=== PATIENT | male | born 1955 | race Hispanic/Latino ===

== ENCOUNTER → 2019-03-20 | Outpatient (CLI) | payer MEDICARE | END | disposition home or self-care (01) | LOC: SHCH 15:41 | PROVIDERS: ATTEND Internal Medicine Cardiovascular Disease | DX: I25.10 Atherosclerotic heart disease of native coronary artery without angina pectoris (principal); I51.7 Cardiomegaly | CPT/HCPCS: 93306 ==

== ENCOUNTER → 2019-03-30 | Outpatient (CLI) | payer MEDICARE ==
[~2019-03-30] VITALS: Ht 180.3 cm; Wt 94.8 kg
[~2019-03-30] MED LIST: REGADENOSON 0.4 MG/5 ML PF SYG IVP SCH
== END | disposition home or self-care (01) ==
LOC: SHCH 08:17
PROVIDERS: ATTEND Internal Medicine Cardiovascular Disease
DX: I25.10 Atherosclerotic heart disease of native coronary artery without angina pectoris (principal)
CPT/HCPCS: 78452; 93017; 96374; A9500 ×2; J2785

== ENCOUNTER → 2020-08-03 | Outpatient (CLI) | payer MEDICARE | END | disposition home or self-care (01) | LOC: SHCH 12:22 | PROVIDERS: ATTEND Internal Medicine Cardiovascular Disease | DX: I87.2 Venous insufficiency (chronic) (peripheral) (principal); I73.9 Peripheral vascular disease, unspecified | CPT/HCPCS: 93925; 93970 ==

== ENCOUNTER → 2022-04-17 | Outpatient (CLI) | payer MEDICARE | END | disposition home or self-care (01) | LOC: SHCH 15:05 | PROVIDERS: ATTEND Internal Medicine Cardiovascular Disease | DX: I77.1 Stricture of artery (principal); I65.21 Occlusion and stenosis of right carotid artery | CPT/HCPCS: 93880 ==

== ENCOUNTER → 2023-03-18 | Outpatient (CLI) | payer MEDICARE ==
[~2023-03-18] MED LIST changes: +CEFAZOLIN SODIUM 1 GM VIAL ONE; +PAPAVERINE HCL 30 MG/ML 2ML VIAL ONE; -REGADENOSON 0.4 MG/5 ML PF SYG IVP SCH
== END | disposition home or self-care (01) ==
LOC: SHCH 08:12
PROVIDERS: ATTEND Internal Medicine Cardiovascular Disease
DX: I11.9 Hypertensive heart disease without heart failure (principal); R01.1 Cardiac murmur, unspecified; E11.9 Type 2 diabetes mellitus without complications; E78.5 Hyperlipidemia, unspecified
CPT/HCPCS: 93306; J0690; J1644; J2440

== ENCOUNTER → 2023-03-28 | Outpatient (CLI) | payer MEDICARE | END | disposition home or self-care (01) | LOC: SHCH 14:59 | PROVIDERS: ATTEND Internal Medicine Cardiovascular Disease | DX: I65.23 Occlusion and stenosis of bilateral carotid arteries (principal) | CPT/HCPCS: 93880 ==

== ENCOUNTER → 2023-04-05 | Outpatient (CLI) | payer MEDICARE ==
[~2023-04-05] MED LIST changes: -CEFAZOLIN SODIUM 1 GM VIAL ONE; -PAPAVERINE HCL 30 MG/ML 2ML VIAL ONE; +REGADENOSON 0.4 MG/5 ML PF SYG IVP ONE
== END | disposition home or self-care (01) ==
LOC: SHCH 08:17
PROVIDERS: ATTEND Internal Medicine Cardiovascular Disease
DX: R94.39 Abnormal result of other cardiovascular function study (principal); I49.1 Atrial premature depolarization; I20.9 Angina pectoris, unspecified; R07.9 Chest pain, unspecified
CPT/HCPCS: 78452; 96374; 93017; J2785; A9500 ×2

== ENCOUNTER → 2023-05-31 | Outpatient (CLI) | payer MEDICARE ==
[~2023-05-31] MED LIST changes: +IOHEXOL 350 MG/ML 100ML INFUS..BTL IV ONE; -REGADENOSON 0.4 MG/5 ML PF SYG IVP ONE
== END | disposition home or self-care (01) ==
LOC: RAH 09:16
PROVIDERS: ATTEND Internal Medicine Cardiovascular Disease
DX: I65.23 Occlusion and stenosis of bilateral carotid arteries (principal)
CPT/HCPCS: 70498; Q9967

== ENCOUNTER → 2023-09-17 | Outpatient (CLI) | payer MEDICARE ==
[~2023-09-17] VITALS: Ht 172.7 cm; Wt 94.8 kg
[~2023-09-17] MED LIST changes: +AEC81 PO; +ATOR40TA71 PO; +CLOP75TA32 PO; +DILT120C12 PO; +FEXO-235 PO; -IOHEXOL 350 MG/ML 100ML INFUS..BTL IV ONE; +LOSA100T59 PO; +METO-409 PO; +NITR0.4T50 SL; +VENL-63 PO; +[UNRECOGNIZED DRUG - CODE] PO
[2023-09-17 11:20] LABS: BASOPHILS # (AUTO) 0.11 K/uL (0.00-0.20); BASOPHILS % (AUTO) 1.1 % (0.0-5.0); EOSINOPHILS # (AUTO) 0.11 K/uL (0.00-0.70); EOSINOPHILS % (AUTO) 1.1 % (0.0-8.0); HEMATOCRIT 37.7 % (42-54); IMMATURE GRANULOCYTE ABSOLUTE 0.06 K/uL (0-1); LYMPHOCYTES # (AUTO) 0.8 K/uL (1.0-4.8); LYMPHOCYTES % (AUTO) 7.9 % (21.0-51.0); MEAN CORPUSCULAR HEMOGLOBIN 31.7 pg (27.0-33.0); MEAN CORPUSCULAR HGB CONC 33.2 g/dL (32.0-36.0); MEAN CORPUSCULAR VOLUME 95.7 fL (79-99); MONOCYTES # (AUTO) 1.2 K/uL (0.1-1.0); MONOCYTES % (AUTO) 11.9 % (3.0-13.0); NEUTROPHILS # (AUTO) 7.9 K/uL (1.8-7.7); NEUTROPHILS % (AUTO) 77.4 % (40.0-77.0); PLATELET COUNT (AUTO) 299 K/uL (130-400); RED BLOOD CELL COUNT(AUTO) 3.94 MIL/uL (4.50-6.20); WHITE BLOOD COUNT (AUTO) 10.2 K/uL (4.8-10.8)
[2023-09-17 11:27] LABS: CREATININE 1.3 mg/dL (0.5-1.5); POTASSIUM 4.9 mmol/L (3.5-5.1)
[2023-09-17 11:51] VITALS: BP 165/72; PULSE 78; RESP 21
[2023-09-17 11:54] LABS: APPEARANCE,URINE CLEAR (CLEAR); BILIRUBIN,URINE NEGATIVE (NEGATIVE); COLOR,URINE YELLOW (YELLOW); GLUCOSE, URINE (UA) NEGATIVE (NEGATIVE); KETONES,URINE NEGATIVE (NEGATIVE); LEUKOCYTE ESTERASE ,URINE NEGATIVE Leu/uL (NEGATIVE); NITRATE,URINE NEGATIVE (NEGATIVE); OCCULT BLOOD,URINE NEGATIVE (NEGATIVE); PROTEIN,URINE NEGATIVE (NEGATIVE); UROBILINOGEN,URINE 0.2 mg/dL (0.2-1.0)
[2023-09-17 12:06] LABS: B-TYPE NATRIURETIC PEPTIDE 245 pg/mL (0-100)
[2023-09-17 12:10] LABS: ADD UA MICROSCOPIC NO
[2023-09-17 12:16] LABS: INR 0.95 (0.85-1.15); PROTHROMBIN TIME 11.1 SEC (9.6-11.6)
[2023-09-17 12:18] LABS: PARTIAL THROMBOPLASTIN TIME 32.8 SEC (26.3-35.5)
== END | disposition home or self-care (01) ==
LOC: DAH 10:00 → EDSTATUS 10:00
PROVIDERS: ATTEND Internal Medicine Cardiovascular Disease
DX: Z01.818 Encounter for other preprocedural examination (principal); I25.10 Atherosclerotic heart disease of native coronary artery without angina pectoris; I51.7 Cardiomegaly; M47.815 Spondylosis without myelopathy or radiculopathy, thoracolumbar region; Z79.01 Long term (current) use of anticoagulants
CPT/HCPCS: 36415; 71045; 80048; 81003; 83880; 85025; 85610; 85730; 93005

== ENCOUNTER 2023-11-21 07:40 | Day surgery (SDC) | payer MEDICARE ==
[2023-11-19 10:09] LABS: CREATININE 1.1 mg/dL (0.5-1.5); POTASSIUM 4.9 mmol/L (3.5-5.1)
[2023-11-19 10:10] LABS: BASOPHILS # (AUTO) 0.06 K/uL (0.00-0.20); BASOPHILS % (AUTO) 0.7 % (0.0-5.0); EOSINOPHILS # (AUTO) 0.21 K/uL (0.00-0.70); EOSINOPHILS % (AUTO) 2.5 % (0.0-8.0); HEMATOCRIT 39.9 % (42-54); IMMATURE GRANULOCYTE ABSOLUTE 0.08 K/uL (0-1); LYMPHOCYTES # (AUTO) 1.3 K/uL (1.0-4.8); LYMPHOCYTES % (AUTO) 15.2 % (21.0-51.0); MEAN CORPUSCULAR HEMOGLOBIN 31.1 pg (27.0-33.0); MEAN CORPUSCULAR HGB CONC 33.1 g/dL (32.0-36.0); MEAN CORPUSCULAR VOLUME 93.9 fL (79-99); MONOCYTES % (AUTO) 12.1 % (3.0-13.0); NEUTROPHILS # (AUTO) 5.7 K/uL (1.8-7.7); NEUTROPHILS % (AUTO) 68.5 % (40.0-77.0); PLATELET COUNT (AUTO) 338 K/uL (130-400); RED BLOOD CELL COUNT(AUTO) 4.25 MIL/uL (4.50-6.20); RED CELL DISTRIBUTION WIDTH 13.6 % (11.0-15.5); WHITE BLOOD COUNT (AUTO) 8.4 K/uL (4.8-10.8)
[2023-11-19 10:17] LABS: INR <= 0.93 (0.85-1.15); PROTHROMBIN TIME 10.5 SEC (9.6-11.6)
[2023-11-19 10:18] LABS: PARTIAL THROMBOPLASTIN TIME 31.2 SEC (26.3-35.5)
[2023-11-19 10:25] VITALS: BP 150/74; PULSE 69; RESP 18
[2023-11-21] VITALS (13 sets, daily range): BP systolic 111–152; BP diastolic 53–65; PULSE 59–68; RESP 14–16
[~2023-11-21] VITALS: Ht 177.8 cm; Wt 93.3 kg
[~2023-11-21 07:40] MED LIST changes: +CALC-866 PO; +CYAN-118 PO; -[UNRECOGNIZED DRUG - CODE] PO
[2023-11-21] MEDS ORDERED: BIVALIRUDIN 250 MG/VIAL IV ONE (09:56)
[2023-11-21] MEDS ORDERED: LIDOCAINE HCL 400MG/20ML VIAL ONE (09:56)
[2023-11-21] MEDS ORDERED: FENTANYL CITRATE PF 50 MCG/1 ML 2ML VIAL ONE (09:56)
[2023-11-21] MEDS ORDERED: MIDAZOLAM HCL 1 MG/ML 2ML VIAL ONE ×2 (09:56→10:44)
[2023-11-21] MEDS ORDERED: HEPARIN 10,000 UNIT/10ML (1,000 UNIT/ML) VIAL ONE (09:57)
[2023-11-21] MEDS ORDERED: IOHEXOL-350 50ML VIAL IV ONE (09:57)
[2023-11-21] MEDS ORDERED: NITROGLYCERIN 50MG VIAL ONE (09:57)
[2023-11-21] MEDS ORDERED: IOHEXOL 350 MG/ML 100ML INFUS..BTL IV ONE (09:57)
[2023-11-21] MEDS: 0.9%NACL 1000ML 1,000 ML IV ONE (09:57)
[2023-11-21] MEDS ORDERED: DEXTROSE 50%-WATER 50 ML DISP.SYRIN IV PRN (11:30)
[2023-11-21] MEDS ORDERED: GLUCAGON 1MG KIT 1 MG ML IM PRN (11:30)
[2023-11-21] MEDS ORDERED: 0.9%NACL 1000ML 1,000 ML IV SCH (11:30)
== END 2023-11-21 17:40 | disposition home or self-care (01) ==
LOC: DAH 07:40
PROVIDERS: ATTEND Internal Medicine Cardiovascular Disease
DX: I25.118 Atherosclerotic heart disease of native coronary artery with other forms of angina pectoris (principal); I65.22 Occlusion and stenosis of left carotid artery; T82.855A Stenosis of coronary artery stent, initial encounter; I25.82 Chronic total occlusion of coronary artery; I49.3 Ventricular premature depolarization; I11.0 Hypertensive heart disease with heart failure; I50.32 Chronic diastolic (congestive) heart failure; E11.9 Type 2 diabetes mellitus without complications; E78.5 Hyperlipidemia, unspecified; I87.2 Venous insufficiency (chronic) (peripheral); F32.A Depression, unspecified; N52.9 Male erectile dysfunction, unspecified; E66.3 Overweight; Z79.899 Other long term (current) drug therapy; Z79.01 Long term (current) use of anticoagulants; Z95.1 Presence of aortocoronary bypass graft; Z68.27 Body mass index [BMI] 27.0-27.9, adult; Z87.891 Personal history of nicotine dependence; Z79.82 Long term (current) use of aspirin; Y83.8 Other surgical procedures as the cause of abnormal reaction of the patient, or of later complication, without mention of misadventure at the time of the procedure; Y92.89 Other specified places as the place of occurrence of the external cause
CPT/HCPCS: 80048; 85025; 85610; 85730; 36415; 71045; 93005; 93459; 36222; 36225; 82948; C1769; C1894 ×2; C1760 ×3; J3010; J3490 ×2; J7030; J2250 ×2; J1644; Q9967; A4215; A4222; A4221; A4663; A4216; A4606; Q9965 ×2; A4223 ×3; 36223; 99156; 99157; J0583

== ENCOUNTER → 2024-03-02 | Outpatient (CLI) | payer MEDICARE ==
[~2024-03-02] MED LIST changes: +CYAN-106 PO; -CYAN-118 PO
== END | disposition home or self-care (01) ==
LOC: SHCH 11:29
PROVIDERS: ATTEND Internal Medicine Cardiovascular Disease
DX: I65.22 Occlusion and stenosis of left carotid artery (principal)
CPT/HCPCS: 93880

== ENCOUNTER → 2024-11-28 | Outpatient (CLI) | payer MEDICARE ==
--- NOTE | 2024-12-02 08:38 | HMCSR ---
APPROVED REPORT Laterality: Bilateral Indications i65.23 Surgery/Intervention Carotid Stent: left Doppler Spectral Velocity Analysis PSV / EDVPSV / EDV ECA (R) 178 / cm/sECA (L) 209 / cm/s dICA (R) 118 / 23 cm/sdICA (L) 105 / 26 cm/s Fransico (R) 97 / 21 cm/smICA (L) 110 / 22 cm/s pICA (R) 116 / 14 cm/spICA (L) 115 / 16 cm/s dCCA (R) 99 / 19 cm/sdCCA (L) 81 / 16 cm/s mCCA (R) 73 / 13 cm/smCCA (L) 107 / 22 cm/s pCCA (R) 58 / 13 cm/spCCA (L) 143 / 36 cm/s Vert (R) 62 / cm/sVert (L) 37 / cm/s Subl. (R) 273 / cm/sSubl. (L) 404 / cm/s ICA/CCA 1.19ICA/CCA 0.80 Technologist Impression Mild plaque noted in the bilateral carotids. Right ICA appears patent, without hemodynamic significance. Evidence of a Left ICA stent that is patent without stenosis. Bilateral vertebral arteries appear antegrade. Velocities in the right subclavian artery are suggestive of >50% stenosis. Velocities in the left subclavian artery are suggestive of >70% stenosis. Conclusion Patent stent to left internal carotid artery Elevated velocities of the left subclavian artery suggesting stenosis greater than 75% Conclusion Patent stent to left internal carotid artery Elevated velocities of the left subclavian artery suggesting stenosis greater than 75%
== END | disposition home or self-care (01) ==
LOC: SHCH 13:35
PROVIDERS: ATTEND Internal Medicine Cardiovascular Disease
DX: I65.23 Occlusion and stenosis of bilateral carotid arteries (principal)
CPT/HCPCS: 93880